=== PATIENT | female | born 1995 | race Hispanic/Latino ===

== ENCOUNTER 2022-05-30 19:36 | Emergency (ER) | payer MEDICAID, OTHER ==
[~2022-05-30] VITALS: Ht 152.4 cm; Wt 76.7 kg
[2022-05-30 20:08] VITALS: BP 137/81
[2022-05-30 20:55] LABS: APPEARANCE,URINE CLOUDY (CLEAR); BILIRUBIN,URINE NEGATIVE (NEGATIVE); COLOR,URINE LIGHT-YELLOW (YELLOW); GLUCOSE, URINE (UA) NEGATIVE (NEGATIVE); KETONES,URINE NEGATIVE (NEGATIVE); LEUKOCYTE ESTERASE ,URINE 250 Leu/uL (NEGATIVE); NITRATE,URINE NEGATIVE (NEGATIVE); OCCULT BLOOD,URINE NEGATIVE (NEGATIVE); PROTEIN,URINE 20 mg/dL (NEGATIVE); UROBILINOGEN,URINE 0.2 mg/dL (0.2-1.0)
[2022-05-30 21:00] LABS: HCG,QUALITATIVE URINE NEGATIVE (NEGATIVE)
[2022-05-30 21:07] LABS: BACTERIA,URINE RARE /HPF (None Seen); MUCUS,URINE RARE LPF (None Seen); SQUAMOUS EPITHELIAL CELL,UR MANY /HPF (0-2)
[2022-05-30] MEDS ORDERED: CEPH500B PO (21:34)
== END 2022-05-30 21:53 | disposition home or self-care (01) ==
LOC: EDH 19:36
DX: N39.0 Urinary tract infection, site not specified (principal)
CPT/HCPCS: 81001; 81025; 87077; 87088; 87186

== ENCOUNTER 2022-06-05 02:23 | Emergency (ER) | payer OTHER ==
[~2022-06-05] VITALS: Ht 162.6 cm; Wt 77.1 kg
[~2022-06-05 02:23] MED LIST: CEPH500B PO
[2022-06-05 06:04] LABS: BASOPHILS % (AUTO) 0.4 % (0.0-5.0); EOSINOPHILS % (AUTO) 1.9 % (0.0-8.0); HEMATOCRIT 36.9 % (36-48); LYMPHOCYTES % (AUTO) 35.2 % (21.0-51.0); MEAN CORPUSCULAR HEMOGLOBIN 25.3 pg (27.0-33.0); MONOCYTES % (AUTO) 13.3 % (3.0-13.0); NEUTROPHILS % (AUTO) 48.8 % (40.0-77.0); PLATELET COUNT (AUTO) 207 K/uL (130-400); RED BLOOD CELL COUNT(AUTO) 4.67 MIL/uL (4.00-5.50); RED CELL DISTRIBUTION WIDTH 15.4 % (11.0-15.5); WHITE BLOOD COUNT (AUTO) 5.3 K/uL (4.8-10.8)
[2022-06-05 06:20] LABS: ALBUMIN 3.8 g/dL (3.5-5.0); APPEARANCE,URINE CLOUDY (CLEAR); BILIRUBIN,URINE NEGATIVE (NEGATIVE); COLOR,URINE YELLOW (YELLOW); CREATININE 0.5 mg/dL (0.5-1.5); GLUCOSE, URINE (UA) NEGATIVE (NEGATIVE); KETONES,URINE 5 mg/dL (NEGATIVE); LEUKOCYTE ESTERASE ,URINE 75 Leu/uL (NEGATIVE); NITRATE,URINE 1+ (NEGATIVE); PH,URINE 5.5 (5.0-8.0); POTASSIUM 4.5 mmol/L (3.5-5.1); PROTEIN,URINE 30 mg/dL (NEGATIVE); TOTAL PROTEIN, SERUM 7.2 g/dL (6.0-8.3)
[2022-06-05 06:21] LABS: HCG,QUALITATIVE URINE NEGATIVE (NEGATIVE)
[2022-06-05 06:28] LABS: AMPHET/METH SCREEN,URINE NEGATIVE (NEGATIVE); BARBITURATE SCREEN, URINE NEGATIVE (NEGATIVE); BENZODIAZEPINES SCREEN,URINE NEGATIVE (NEGATIVE); CANNABINOID SCREEN,URINE NEGATIVE (NEGATIVE); COCAINE SCREEN,URINE NEGATIVE (NEGATIVE); OPIATE SCREEN,URINE NEGATIVE (NEGATIVE); PHENCYCLIDINE SCREEN,URINE NEGATIVE (NEGATIVE)
[2022-06-05] MEDS ORDERED: 0.9%NACL 1000ML 1,000 ML IV ONE ×2 (06:30)
[2022-06-05 06:33] LABS: BACTERIA,URINE MOD /HPF (None Seen); MUCUS,URINE MANY LPF (None Seen); SQUAMOUS EPITHELIAL CELL,UR MANY /HPF (0-2)
[2022-06-05] MEDS ORDERED: LEVOFLOXACIN 500 MG/D5W 100 ML 100 ML IV SCH (07:00)
[2022-06-05 09:11] VITALS: BP 108/66
[2022-06-05] MEDS ORDERED: CEFTRIAXONE 500MG VIAL IM SCH (09:30)
[2022-06-05] MEDS ORDERED: FLUC150T48 PO (09:32)
[2022-06-05] MEDS ORDERED: DOXY100T21 PO (09:32)
[2022-06-05] MEDS ORDERED: METR-172 PO (09:32)
[2022-06-05] MEDS ORDERED: CEFTRIAXONE 500MG VIAL ONE (09:41)
== END 2022-06-05 09:48 | disposition home or self-care (01) ==
LOC: EDH 02:23
DX: N73.9 Female pelvic inflammatory disease, unspecified (principal); Z79.899 Other long term (current) drug therapy
CPT/HCPCS: 99285; 96365; 76856; 96361; 80053; 80305; 85025; 87210; 87077; 87088; 87186; 87797; 87486; 81025; 36415; 93005; 96372; 81001; J1956; J0696